=== PATIENT | female | born 1970 | race Caucasian/White ===

== ENCOUNTER → 2016-07-26 | Outpatient (CLI) | payer OTHER ==
[~2016-07-26] MED LIST: AMT10 PO; ASPI-390 PO; BND25 PO; CHOL100010 PO; CYAN500T PO; DRYSOLDAB; FLUT0.0529 NAE; FROV2.5T5 PO; LEVO112T2 PO; LORA10CA2 PO; MELA1CAP9 PO; MULT-884 PO; NORE-5 PO; PANT40TA PO
--- NOTE | 2016-07-26 09:12 | DIAGNOSTIC IMAGING REPORT ---
TWO VIEW CHEST CLINICAL HISTORY: Asthma. FINDINGS: PA and lateral chest radiographs are obtained. No prior studies are available for comparison at the time of dictation. The cardiomediastinal silhouette is unremarkable. The lungs appear slightly hyperinflated, likely due to good inspiratory result. The lungs and pleural spaces are clear. There is no pneumothorax. The bony thorax appears intact. IMPRESSION: No active disease in the chest. Electronically signed by: Darrel Adorno M.D. 07/26/2016 9:11 AM Dictated Date/Time: 07/26/2016 9:09 AM
== END | disposition home or self-care (01) ==
LOC: C.RAD1850 08:35
PROVIDERS: ATTEND Internal Medicine Pulmonary Disease
DX: J45.909 Unspecified asthma, uncomplicated (principal)